=== PATIENT | male | born 1970 | race Caucasian/White ===

== ENCOUNTER 2017-11-15 08:53 | Emergency (ER) | payer BC ==
--- OUTSIDE RECORDS SUMMARY | 2017-11-15 08:55 | XMS REPORT | Clinical Summary ---
:1970 Author Organization [facility] Address [address] [place] [address] Care Team Providers Name Role Phone Tyrell Chacon MD Primary Care Provider Allergies No Known Allergies Current Medications Prescription Sig. Disp. Refills Start End Date Status Date fluticasone (FLONASE) 1 spray into 16 g 0 Active 50 mcg/actuation nasal each nostril 2 6 sprayIndications: Other (two) times a acute recurrent day for 10 sinusitis, Other days. allergic rhinitis fluticasone (FLONASE) 1 spray into 16 g 0 Active 50 mcg/actuation nasal each nostril 2 6 spray (two) times a day for 10 days. cyclobenzaprine Active (FLEXERIL) 5 mg tablet 7 methylPREDNISolone follow package 21 tablet 0 Active (MEDROL, RADHA,) 4 mg directions 7 tablet metoprolol succinate XL Take 1 tablet 90 tablet 3 Active (TOPROL-XL) 50 mg 24 hr (50 mg total) 7 tabletIndications: by mouth Essential hypertension daily. buPROPion SR Take 3 tablets 270 tablet 3 Active (WELLBUTRIN SR) 150 MG (450 mg total) 7 12 hr by mouth daily tabletIndications: for 90 days. Depression, unspecified depression type losartan-hydrochlorothi Take 1 tablet 90 tablet 3 Active azide (HYZAAR) 50-12.5 by mouth once 7 mg per daily. tabletIndications: Essential hypertension simvastatin (ZOCOR) 20 TAKE 1 TABLET 90 tablet 0 Active MG tabletIndications: BY MOUTH EVERY 8 Other hyperlipidemia DAY buPROPion SR Take 3 tablets 270 tablet 1 02/17/20 Discontinued (WELLBUTRIN SR) 150 MG (450 mg total) 7 17 12 hr by mouth daily tabletIndications: for 90 days. Depression, unspecified depression type losartan-hydrochlorothi Take 1 tablet 90 tablet 1 02/17/20 Discontinued azide (HYZAAR) 50-12.5 by mouth once 7 17 mg per daily. tabletIndications: Essential hypertension metoprolol succinate XL Take 1 tablet 90 tablet 1 02/17/20 Discontinued (TOPROL-XL) 50 mg 24 hr (50 mg total) 7 17 tabletIndications: by mouth once Essential hypertension daily. simvastatin (ZOCOR) 20 Take 1 tablet 90 tablet 1 05/18/19 Discontinued MG tabletIndications: (20 mg total) 7 18 Other hyperlipidemia by mouth once daily. meloxicam (MOBIC) 15 mg Take 1 tablet 30 tablet 2 08/01/19 tablet (15 mg total) 7 18 by mouth daily. cyclobenzaprine Take 1 tablet 30 tablet 1 08/03/19 (FLEXERIL) 10 mg tablet (10 mg total) 7 18 by mouth every 8 (eight) hours as needed for muscle spasms. Active Problems Problem Noted Date Erectile dysfunction 12/19/2015 Encounters Date Type Specialty Care Team Description 05/28/2017 Documentation Family Medicine Eileen Santana [facility] derick Valles MD utilization note 05/18/2017 Telephone Family Medicine Eileen Santana MD 05/18/2017 Refill Family Medicine Tyrell Chacon MD Other hyperlipidemia 02/16/2017 Refill Internal Medicine Lakshmi Dial, Essential hypertension; MA Depression, unspecified depression type after 11/14/2016 Social History Tobacco Use Types Packs/Day Years Used Date Former Smoker Tobacco Cessation: Counseling Given: No Alcohol Use Drinks/Week oz/Week Comments Yes 1 Shots of liquor 0.6 Sex Assigned at Date Recorded Not on file Last Filed Vital Signs Not on file Plan of Treatment Health Maintenance Due Date Last Done Comments INFLUENZA VACCINE 11/04/2017 Results Not on fileafter 11/14/2016 Insurance Payer Benefit Plan / Group Subscriber ID Type Phone Address BCBS BCBS CHOICE PPO/FEDERAL EMPL PPO xxxxxxxxxxxxxxx PPO Work: [address] [phone] [address] [place], [place] Home: [id number] [phone] [facility]
[2017-11-15] MEDS ORDERED: ONDANSETRON 4 MG/2 ML VIAL ONE (09:32)
[2017-11-15] MEDS ORDERED: MORPHINE 4 MG/ML SYR ONE (09:32)
[2017-11-15 09:33] LABS: Absolute Lymphocytes (CBC) 1.6 K/uL (0.7-4.9); Absolute Monocytes 0.7 K/uL (0.1-1.3); Absolute Neutrophil 4.6 K/uL (1.8-8.0); Basophils % 0.3 % (0-1.3); Eosinophils % 1.2 % (0-4.4); Hematocrit 46.7 % (39.6-49.0); Lymphocytes % 23.4 % (15.3-44.8); MCH 32.4 pg (27.0-35.0); MCV 93.6 fL (80-100); Monocytes % 9.3 % (3.3-12.3); RBC Red Blood Cell Count 4.99 M/uL (4.33-5.43)
[2017-11-15 09:49] LABS: Albumin 4.1 g/dL (3.4-5.0); Bilirubin Direct 0.2 mg/dL (0-0.2); Bilirubin Total 0.9 mg/dL (0.2-1.0); Potassium 4.2 mmol/L (3.5-5.1); Protein, Total 7.6 g/dL (6.4-8.2)
[2017-11-15 10:08] LABS: Urine Blood NEGATIVE (NEG); Urine Glucose NEGATIVE (NEG); Urine Protein NEGATIVE (NEG); Urine Specific Gravity 1.005 (1.005-1.030)
[2017-11-15 10:17] LABS: Urine Bacteria NONE SEEN /HPF (NONE SEEN); Urine Culture Reflex Order NOT NEEDED; Urine RBC <5 /HPF (NONE SEEN)
--- NOTE | 2017-11-15 10:27 | RAD REPORT ---
EXAM DESCRIPTION: CT - Abdomen Pelvis W Contrast - 11/15/2017 10:09 am CLINICAL HISTORY: Abdominal pain, left lower quadrant pain, cramping and diarrhea COMPARISON: None. TECHNIQUE: Biphasic, helical CT imaging of the abdomen and pelvis was performed following 100 ml non -ionic IV contrast. No oral contrast administered. Contrast opacification was not optimal due to inje ctor technical difficulties. Exam is diagnostic. All CT scans are performed using dose optimization technique as appropriate and may include automated exposure control or mA/KV adjustment according to patient size. FINDINGS: No suspicious findings in the lung bases. The liver, spleen, and pancreas show no suspicious findings. Gallbladder and biliary tree are also wi thout suspicious finding. Symmetric renal function is seen with no hydronephrosis or suspicious renal mass. No pyelonephritis o r acute renal parenchymal process. Prostate gland and seminal vesicles are normal. No bladder abnorma lity. No stomach or small bowel abnormality. The appendix is normal. Cecum through splenic flexure of the c olon unremarkable. Distal descending colon and proximal most sigmoid colon show 6-7 centimeter long s egment of mild wall thickening. There is stranding and congestion in the adjacent fat. The patient do es have a mild diverticulosis. Mild acute diverticulitis is favored over colitis. Mass is not suspect ed but is not entirely excluded. No abscess, free air or surgically emergent finding. No pneumatosis or free air. No other site of inflammatory stranding. No mass or bulky lymphadenopathy. Patient has a very small fat only umbilical hernia with small bilateral fat filled inguinal hernias. No adrenal a bnormality. No suspicious bony findings. IMPRESSION: Mild acute diverticulitis involving the distal descending colon and proximal most sigmoi d colon. No free air, abscess or other complicating factor.
--- NOTE | 2017-11-15 10:47 | EDPHYS ---
Physician Documentation [facility] Name: Juve Quach Age: 47 yrs Sex: Male : 1970 Arrival Date: 11/15/2017 Time: 08:59 Bed 5 Private MD: None, None ED Physician Tyler Gifford HPI: 11/15 09:07 This 47 yrs old Male presents to ER via Ambulatory with complaints of jmm Abdominal Cramping, Diarrhea. 09:07 The patient presents with abdominal pain in the left lower quadrant. Onset: The jmm symptoms/episode began/occurred gradually, 3 week(s) ago. The symptoms do not radiate. Associated signs and symptoms: Pertinent positives: diarrhea. This is a 47 year old male with a history of depression, HLP, HTN, Anxiety that presents to the ED with LLQ abdominal pain. Patient was diagnosed with diverticulitis in late October. The patient changed antibiotics a week later. Patient recently finished a course of cipro and flagyl with the pain returning along with diarrhea. . Historical: - Allergies: 09:14 No Known Allergies; sv - Home Meds: 09:14 bupropion HCl 150 mg Oral TbER 1 tab 2 times per day [Active]; metoprolol tartrate 50 sv mg Oral tab 1 tab once daily [Active]; simvastatin 20 mg Oral tab 1 tab once daily [Active]; - PMHx: 09:14 Depression; Hyperlipidemia; Hypertension; Anxiety; sv - PSHx: 09:14 left shoulder; left knee; sv - Immunization history:: Adult Immunizations up to date. - Ebola Screening: : No symptoms or risks identified at this time. - Social history:: Smoking status: Patient/guardian denies using tobacco. ROS: 09:07 Constitutional: Negative for fever, chills, and weight loss, Cardiovascular: Negative jmm for chest pain, palpitations, and edema, Respiratory: Negative for shortness of breath, cough, wheezing, and pleuritic chest pain. 09:07 Back: Negative for injury and pain, : Negative for injury, bleeding, discharge, and swelling, Neuro: Negative for headache, weakness, numbness, tingling, and seizure. 09:07 Abdomen/GI: Positive for abdominal pain, diarrhea. 09:07 All other systems are negative. Exam: 09:07 Constitutional: This is a well developed, well nourished patient who is awake, alert, jmm and in no acute distress. Head/Face: atraumatic. Chest/axilla: Normal chest wall appearance and motion. Cardiovascular: Regular rate and rhythm. No edema appreciated Respiratory: Normal respirations, no respiratory distress appreciated 09:07 Skin: General appearance color normal Neuro: Awake and alert, normal gait 09:07 Abdomen/GI: Inspection: abdomen appears normal, Bowel sounds: normal, Palpation: soft, moderate abdominal tenderness, in the left lower quadrant. 09:07 Back: ROM is normal. Vital Signs: 09:04 BP 146 / 90; Pulse 83; Resp 18; Temp 98.6(O); Pulse Ox 99% on R/A; Weight 101.15 kg; sv Height 5 ft. 11 in. (180.34 cm); Pain 4/10; 10:40 BP 130 / 79; Pulse 82; Resp 18; Pulse Ox 99% ; sv 09:04 Body Mass Index 31.10 (101.15 kg, 180.34 cm) sv MDM: 09:07 Patient medically screened. [facility] 10:46 Data reviewed: vital signs, nurses notes, lab test result(s), radiologic studies, CT [facility] scan. Counseling: I had a detailed discussion with the patient and/or guardian regarding: the historical points, exam findings, and any diagnostic results supporting the discharge/admit diagnosis, radiology results, the need for outpatient follow up, to return to the emergency department if symptoms worsen or persist or if there are any questions or concerns that arise at home. 10:46 ED course: Patient is alert and non toxic in appearance in the ED. Patient will be put [facility] on oral antibiotics and advised to closely follow up with GI for further evaluation. Patient given strict return precautions. Patient has no leukocytosis or findings consistent with perforation secondary to diverticulitis. . 11/15 09:07 Order name: Amylase, Serum; Complete Time: 10:00 [facility] 11/15 09:07 Order name: Basic Metabolic Panel; Complete Time: 10:00 [facility] 11/15 09:07 Order name: CBC with Diff; Complete Time: 10:00 [facility] 11/15 09:07 Order name: Creatinine for Radiology; Complete Time: 10:00 [facility] 11/15 09:07 Order name: Hepatic Function; Complete Time: 10:00 [facility] 11/15 09:07 Order name: Lipase; Complete Time: 10:00 [facility] 11/15 09:07 Order name: Urine Microscopic Only; Complete Time: 10:18 [facility] 11/15 09:07 Order name: IV Saline Lock; Complete Time: 09:22 [facility] 11/15 09:07 Order name: Labs collected and sent; Complete Time: 09:22 [facility] 11/15 09:07 Order name: Urine Dipstick-Ancillary (obtain specimen); Complete Time: :22 [facility] 11/15 09:13 Order name: CT Abd/Pelvis - W/Contrast; Complete Time: 10:32 [facility] 11/15 09:29 Order name: Urine Dipstick--Ancillary (enter results); Complete Time: 10:18 eb Administered Medications: 09:30 Drug: Zofran 4 mg Route: IVP; Site: right antecubital; sv 10:00 Follow up: Response: No adverse reaction sv 09:32 Drug: morphine 4 mg Route: IVP; Site: right antecubital; sv 10:00 Follow up: Response: No adverse reaction sv Disposition: 14:37 Co-signature as Attending Physician, Tyler Gifford MD. rn Disposition: 11/15/17 10:47 Discharged to Home. Impression: Diverticulitis of large intestine without perforation or abscess without bleeding. - Condition is Stable. - Discharge Instructions: High-Fiber Diet, Diverticulitis. - Prescriptions for Flagyl 500 mg Oral Tablet - take 1 tablet by ORAL route every 8 hours for 10 days; 30 tablet. Tylenol- Codeine #3 300-30 mg Oral Tablet - take 1 tablet by ORAL route every 6 hours As needed; 12 tablet. Bactrim DS 800- 160 mg Oral Tablet - take 1 tablet by ORAL route every 12 hours for 10 days; 20 tablet. - Work release form, Medication Reconciliation Form, Thank You Letter, Antibiotic Education, Prescription Opioid Use form. - Follow up: Cosmo Starks MD; When: 1 - 2 days; Reason: Recheck today's complaints, Continuance of care, Re-evaluation by your physician. Follow up: Coleman Saavedra MD; When: As needed; Reason: Recheck today's complaints, Continuance of care, Re-evaluation by your physician. Follow up: Harsha Cruz MD; When: 1 - 2 days; Reason: Recheck today's complaints, Continuance of care, Re-evaluation by your physician. Signatures: Dispatcher [employer] EDAdriane Galarza RN RN Syd Madrigal PA PA jmm Nieto, Roman, MD MD concrete journeyman: (The following items were deleted from the chart) 11:06 10:47 11/15/2017 10:47 Discharged to Home. Impression: Diverticulitis of large sv intestine without perforation or abscess without bleeding. Condition is Stable. Forms are Medication Reconciliation Form, Thank You Letter, Antibiotic Education, Prescription Opioid Use. Follow up: Cosmo Starks; When: 1 - 2 days; Reason: Recheck today's complaints, Continuance of care, Re-evaluation by your physician. Follow up: Coleman Saavedra; When: As needed; Reason: Recheck today's complaints, Continuance of care, Re-evaluation by your physician. Follow up: Harsha Cruz; When: 1 - 2 days; Reason: Recheck today's complaints, Continuance of care, Re-evaluation by your physician. willem 17:08 17:06 ED course: Patient is alert and non toxic in appearance in the ED. Patient will jmcharli be put on oral antibiotics and advised to closely follow up with GI for further evaluation. Patient given strict return precautions. Patient has no leukocytosis or findings consistent with perforation secondary to diverticulitis. . willem
--- NOTE | 2017-11-15 10:47 | ER ---
Nurse's Notes [facility] Name: Juve Quach Age: 47 yrs Sex: Male : 1970 Arrival Date: 11/15/2017 Time: 08:59 Bed 5 Private MD: None, None Diagnosis: Diverticulitis of large intestine without perforation or abscess without bleeding Presentation: 11/15 09:04 Presenting complaint: Patient states: LLQ cramping/diarrhea. Denies rectal bleeding or sv blood in stool. Pt was dx w/ diverticulitis on 10/24/17 at [facility], placed on levaquin and flagyl. Went back to [facility] on 11/04/17 after pain returned, placed on cipro and flagyl increased. Cramping has returned. Transition of care: patient was not received from another setting of care. Onset of symptoms was November 15, 2017. Risk Assessment: Do you want to hurt yourself or someone else? Patient reports no desire to harm self or others. Initial Sepsis Screen: Does the patient meet any 2 criteria? No. Patient's initial sepsis screen is negative. Does the patient have a suspected source of infection? No. Patient's initial sepsis screen is negative. Care prior to arrival: None. 09:04 Method Of Arrival: Ambulatory sv 09:04 Acuity: DEN 3 sv Triage Assessment: 09:04 General: Appears uncomfortable, well groomed, well developed, Behavior is calm, sv cooperative, appropriate for age. Pain: Complains of pain in left lower quadrant Pain currently is 4 out of 10 on a pain scale. Quality of pain is described as crampy, Is intermittent. EENT: No signs and/or symptoms were reported regarding the EENT system. Neuro: Level of Consciousness is awake, alert, obeys commands, Oriented to person, place, time, situation, Moves all extremities. Full function Gait is steady. Respiratory: Respiratory effort is even, unlabored, Respiratory pattern is regular, symmetrical. GI: Abdomen is flat, Reports cramping, diarrhea, Patient currently denies bloody stool, rectal bleeding. : No signs and/or symptoms were reported regarding the genitourinary system. Derm: Skin is pink, warm \T\ dry. Musculoskeletal: No signs and/or symptoms reported regarding the musculoskeletal system. Historical: - Allergies: :14 No Known Allergies; sv - Home Meds: 09:14 bupropion HCl 150 mg Oral TbER 1 tab 2 times per day [Active]; metoprolol tartrate 50 sv mg Oral tab 1 tab once daily [Active]; simvastatin 20 mg Oral tab 1 tab once daily [Active]; - PMHx: 09:14 Depression; Hyperlipidemia; Hypertension; Anxiety; sv - PSHx: 09:14 left shoulder; left knee; sv - Immunization history:: Adult Immunizations up to date. - Ebola Screening: : No symptoms or risks identified at this time. - Social history:: Smoking status: Patient/guardian denies using tobacco. Screenin:16 Abuse screen: Denies threats or abuse. Denies injuries from another. Nutritional sv screening: No deficits noted. Tuberculosis screening: No symptoms or risk factors identified. Fall Risk None identified. Assessment: 09:16 Reassessment: No changes from previously documented assessment. sv 11:05 Reassessment: Patient appears in no apparent distress at this time. Patient and/or sv family updated on plan of care and expected duration. Pain level reassessed. Patient is alert, oriented x 3, equal unlabored respirations, skin warm/dry/pink. Patient states symptoms have improved. Vital Signs: 09:04 BP 146 / 90; Pulse 83; Resp 18; Temp 98.6(O); Pulse Ox 99% on R/A; Weight 101.15 kg; sv Height 5 ft. 11 in. (180.34 cm); Pain 4/10; 10:40 BP 130 / 79; Pulse 82; Resp 18; Pulse Ox 99% ; sv 09:04 Body Mass Index 31.10 (101.15 kg, 180.34 cm) sv ED Course: 08:59 Patient arrived in ED. sb2 08:59 None, None is Private Physician. sb2 09:04 Adriane Griffiths, IVÁN is Primary Nurse. sv 09:04 Syd Bruner PA is PHCP. jmm 09:04 Tyler Gifford MD is Attending Physician. jmm 09:04 Arm band placed on right wrist. Patient placed in an exam room, on a stretcher. sv 09:13 Triage completed. sv 09:16 Patient has correct armband on for positive identification. Bed in low position. Pulse sv ox on. NIBP on. Door closed. Head of bed elevated. 09:17 Initial lab(s) drawn, by me, sent to lab. Inserted saline lock: 20 gauge in right 3 antecubital area, using aseptic technique. Blood collected. 09:22 Urine collected: clean catch specimen, clear. dh3 09:23 Radiology exam delayed due to lab results not completed at this time. (BUN/Creatinine). kw1 09:34 Awaiting lab results, Awaiting CT Scan. sv 10:09 CT Abd/Pelvis - W/Contrast In Process Unspecified. EDMS 10:40 Awaiting radiology results. sv 10:46 Cosmo Starks MD is Referral Physician. jmm 10:46 Coleman Saavedra MD is Referral Physician. jmm 10:46 Harsha Cruz MD is Referral Physician. jm 11:05 No provider procedures requiring assistance completed. IV discontinued, intact, sv bleeding controlled, No redness/swelling at site. Pressure dressing applied. Administered Medications: 09:30 Drug: Zofran 4 mg Route: IVP; Site: right antecubital; sv 10:00 Follow up: Response: No adverse reaction sv 09:32 Drug: morphine 4 mg Route: IVP; Site: right antecubital; sv 10:00 Follow up: Response: No adverse reaction sv Outcome: 10:47 Discharge ordered by MD. jmm 11:05 Discharged to home ambulatory. sv 11:05 Condition: stable 11:05 Discharge instructions given to patient, Instructed on discharge instructions, follow up and referral plans. no drinking with medication, no driving heavy equipment, medication usage, Demonstrated understanding of instructions, follow-up care, medications, Prescriptions given X 3. 11:06 Patient left the ED. sv Signatures: Dispatcher [employer] EDMS Adriane Griffiths, RN RN Syd Bruner PA PA jmm Herrera, Deanna 3 Nadya Zamarripa kw1 Daya Arroyo2
[2017-11-15 11:11] VITALS: TEMP 98.6; O2SAT 99
[2017-11-15 11:12] VITALS: BP 130/79
== END 2017-11-15 11:06 | disposition home or self-care (01) ==
LOC: ER 08:53
DX: K57.32 Diverticulitis of large intestine without perforation or abscess without bleeding (principal); I10 Essential (primary) hypertension; E78.5 Hyperlipidemia, unspecified; F32.9 Major depressive disorder, single episode, unspecified
CPT/HCPCS: 36415; 74177; 80048; 80076; 81003; 81015; 82150; 83690; 85025; 96374; 96375; 99284; J2405; Q9967

== ENCOUNTER 2017-12-14 22:52 | Inpatient (IN) | payer BC ==
--- OUTSIDE RECORDS SUMMARY | 2017-12-14 22:54 | XMS REPORT | Clinical Summary ---
:1970 Author Organization [facility] Address [address] [place] [address] Care Team Providers Name Role Phone Tyrell [...] (eight) hours as needed for muscle spasms. simvastatin (ZOCOR) 20 TAKE 1 TABLET 90 tablet 0 11/17/19 Discontinued MG tabletIndications: BY MOUTH EVERY 8 18 Other hyperlipidemia DAY Active Problems Problem Noted Date Erectile dysfunction 12/19/2015 Encounters Date Type Specialty Care Team Description 11/16/2017 Refill Family Medicine Eileen Santana MD 05/28/2017 Documentation Family Medicine Eileen Santana [facility] derick Valles MD utilization note 05/18/2017 Telephone Family Medicine Eileen Santana MD 05/18/2017 Refill Family Medicine Tyrell Chacon MD Other hyperlipidemia 02/16/2017 Refill Internal Medicine Lakshmi Dial, Essential hypertension; MA Depression, unspecified depression type after 12/13/2016 Social History Tobacco Use Types Packs/Day Years Used Date Former Smoker Tobacco Cessation: Counseling Given: No Alcohol Use Drinks/Week oz/Week Comments Yes 1 Shots of liquor 0.6 Sex Assigned at Date Recorded Not on file Last Filed Vital Signs Not on file Plan of Treatment Health Maintenance Due Date Last Done Comments INFLUENZA VACCINE 11/04/2017 Results Not on fileafter 12/13/2016 Insurance Payer Benefit Plan / Group Subscriber ID Type Phone Address BCBS BCBS CHOICE PPO/FEDERAL EMPL PPO xxxxxxxxxxxxxxx PPO Home: [id number] [phone] [facility]
[2017-12-14] MEDS ORDERED: MORPHINE 4 MG/ML SYR ONE (23:45)
[2017-12-14] MEDS ORDERED: ONDANSETRON 4 MG/2 ML VIAL ONE (23:45)
[2017-12-14] MEDS ORDERED: CEFTRIAXONE/SWI 1gm 1 GM/10 ML SYR ONE (23:45)
[2017-12-14] MEDS ORDERED: METRONIDAZOLE 500mg IVPB 500 MG/100 ML BAG IV ONE (23:46)
[2017-12-14] MEDS ORDERED: NA CHLORIDE 0.9% 1,000 ML ONE (23:46)
[2017-12-15 00:02] LABS: Absolute Lymphocytes (CBC) 2.9 K/uL (0.7-4.9); Absolute Monocytes 1.5 K/uL (0.1-1.3); Absolute Neutrophil 7.2 K/uL (1.8-8.0); Basophils % 0.3 % (0-1.3); Eosinophils % 1.2 % (0-4.4); Hematocrit 46.8 % (39.6-49.0); Lymphocytes % 24.9 % (15.3-44.8); MCH 32.7 pg (27.0-35.0); MCV 94.5 fL (80-100); MPV 9.2 fL (7.6-11.3); Monocytes % 12.8 % (3.3-12.3); RBC Red Blood Cell Count 4.96 M/uL (4.33-5.43)
--- NOTE | 2017-12-15 00:14 | EDPHYS ---
Physician Documentation [facility] Name: Juve Quach Age: 47 yrs Sex: Male : 1970 Arrival Date: 12/14/2017 Time: 22:54 Bed 23 Private MD: ED Physician Ankur Singh HPI: 12/15 00:08 This 47 yrs old Male presents to ER via Ambulatory with complaints of ABD raji PAIN/DIARRHEA. 00:08 The patient presents with abdominal pain in the lower abdomen, in the left lower raji quadrant. Onset: The symptoms/episode began/occurred 3 day(s) ago. The symptoms do not radiate. Associated signs and symptoms: Pertinent positives: diarrhea. The symptoms are described as crampy. Modifying factors: The symptoms are alleviated by nothing, the symptoms are aggravated by nothing. Severity of pain: At its worst the pain was moderate. The patient has not experienced similar symptoms in the past. Historical: - Allergies: 12/14 23:15 No Known Allergies; fc - Home Meds: 23:15 bupropion HCl 150 mg Oral TbER 1 tab 2 times per day [Active]; metoprolol tartrate 50 fc mg Oral tab 1 tab once daily [Active]; simvastatin 20 mg Oral tab 1 tab once daily [Active]; - PMHx: 23:15 Anxiety; Depression; Hyperlipidemia; Hypertension; Diverticulitis; fc - PSHx: 23:15 left shoulder surg; left knee surg; fc - Immunization history:: Last tetanus immunization: up to date. - Social history:: Smoking status: Patient/guardian denies using tobacco, Patient uses alcohol, occasionally. Patient/guardian denies using street drugs. - Ebola Screening: : Patient negative for fever greater than or equal to 101.5 degrees Fahrenheit, and additional compatible Ebola Virus Disease symptoms Patient denies exposure to infectious person Patient denies travel to an Ebola-affected area in the 21 days before illness onset. - Family history:: not pertinent. ROS: 12/15 00:08 Constitutional: Negative for fever, chills, and weight loss, Eyes: Negative for injury, raji pain, redness, and discharge, ENT: Negative for injury, pain, and discharge, Neck: Negative for injury, pain, and swelling, Cardiovascular: Negative for chest pain, palpitations, and edema, Respiratory: Negative for shortness of breath, cough, wheezing, and pleuritic chest pain, Back: Negative for injury and pain, : Negative for injury, bleeding, discharge, and swelling, MS/Extremity: Negative for injury and deformity, Skin: Negative for injury, rash, and discoloration, Neuro: Negative for headache, weakness, numbness, tingling, and seizure. Abdomen/GI: Positive for abdominal pain, of the left lower quadrant. Exam: 00:08 Constitutional: This is a well developed, well nourished patient who is awake, alert, raji and in no acute distress. Head/Face: Normocephalic, atraumatic. Eyes: Pupils equal round and reactive to light, extra-ocular motions intact. Lids and lashes normal. Conjunctiva and sclera are non-icteric and not injected. Cornea within normal limits. Periorbital areas with no swelling, redness, or edema. ENT: Nares patent. No nasal discharge, no septal abnormalities noted. Tympanic membranes are normal and external auditory canals are clear. Oropharynx with no redness, swelling, or masses, exudates, or evidence of obstruction, uvula midline. Mucous membranes moist. Neck: Trachea midline, no thyromegaly or masses palpated, and no cervical lymphadenopathy. Supple, full range of motion without nuchal rigidity, or vertebral point tenderness. No Meningismus. Chest/axilla: Normal chest wall appearance and motion. Nontender with no deformity. No lesions are appreciated. Cardiovascular: Regular rate and rhythm with a normal S1 and S2. No gallops, murmurs, or rubs. Normal PMI, no JVD. No pulse deficits. Respiratory: Lungs have equal breath sounds bilaterally, clear to auscultation and percussion. No rales, rhonchi or wheezes noted. No increased work of breathing, no retractions or nasal flaring. Back: No spinal tenderness. No costovertebral tenderness. Full range of motion. Male : Normal genitalia with no discharge or lesions. Skin: Warm, dry with normal turgor. Normal color with no rashes, no lesions, and no evidence of cellulitis. MS/ Extremity: Pulses equal, no cyanosis. Neurovascular intact. Full, normal range of motion. Neuro: Awake and alert, GCS 15, oriented to person, place, time, and situation. Cranial nerves II-XII grossly intact. Motor strength 5/5 in all extremities. Sensory grossly intact. Cerebellar exam normal. Normal gait. Psych: Awake, alert, with orientation to person, place and time. Behavior, mood, and affect are within normal limits. 00:08 Abdomen/GI: Inspection: abdomen appears normal, Bowel sounds: normal, Palpation: mild abdominal tenderness, moderate abdominal tenderness, in the left lower quadrant, Liver: no appreciated palpable abnormalities, Hernia: not appreciated. Vital Signs: 12/14 23:00 BP 153 / 97; Pulse 87; Resp 18; Pulse Ox 98% on R/A; Weight 99.34 kg (R); Height 5 ft. fc 11 in. (180.34 cm) (R); Pain 6/10; 23:13 Temp 99.4(O); mg2 12/15 00:12 Pulse 77; Resp 18; Pulse Ox 100% on R/A; mg2 12/14 23:00 Body Mass Index 30.54 (99.34 kg, 180.34 cm) fc MDM: 12/14 23:17 Patient medically screened. [facility] 12/15 00:12 Data reviewed: vital signs, nurses notes, lab test result(s), radiologic studies, CT [facility] scan. 12/14 23:24 Order name: Amylase, Serum [facility] 12/14 23:24 Order name: Basic Metabolic Panel [facility] 12/14 23:24 Order name: CBC with Diff; Complete Time: 01:08 [facility] 12/14 23:24 Order name: Creatinine for Radiology; Complete Time: 01:08 [facility] 12/14 23:24 Order name: Hepatic Function [facility] 12/14 23:24 Order name: Lipase; Complete Time: 01:08 [facility] 12/14 23:24 Order name: Urine Microscopic Only; Complete Time: 01:08 [facility] 12/14 23:24 Order name: Stool Culture [facility] 12/14 23:24 Order name: Fecal Leukocyte Stain [facility] 12/14 23:24 Order name: CDIFF [facility] 12/14 23:24 Order name: Urine Culture [facility] 12/14 23:25 Order name: Amylase Level; Complete Time: 01:08 [facility] 12/14 23:25 Order name: Basic Metabolic Panel; Complete Time: 01:08 [facility] 12/14 23:25 Order name: Liver (Hepatic) Function; Complete Time: 01:08 [facility] 12/14 23:24 Order name: IV Saline Lock; Complete Time: 23:34 [facility] 12/14 23:24 Order name: Labs collected and sent; Complete Time: 23:34 [facility] 12/14 23:24 Order name: Urine Dipstick-Ancillary (obtain specimen); Complete Time: 23:34 [facility] 12/14 23:34 Order name: Urine Dipstick--Ancillary (enter results); Complete Time: 01:08 [facility] 12/15 00:17 Order name: CONS Physician Consult EDNM 12/15 05:54 Order name: CBC with Automated Diff; Complete Time: :44 EDMS 12/15 06:12 Order name: Comprehensive Metabolic Panel; Complete Time: :44 EDMS Administered Medications: 12/14 23:51 Drug: morphine 4 mg Route: IVP; Site: left antecubital; mg2 12/15 00:21 Follow up: Response: No adverse reaction; Marked relief of symptoms [facility] 12/14 23:51 Drug: Zofran 4 mg Route: IVP; Site: left antecubital; mg2 12/15 00:20 Follow up: Response: No adverse reaction; Marked relief of symptoms [facility] 12/14 23:52 Drug: Flagyl 500 mg Volume: 100 ml; Route: IVPB; Rate: 200 ml/hr; Infused Over: 30 mg2 mins; Site: left antecubital; 23:52 Drug: Rocephin - (cefTRIAXone) 1 grams Route: IVPB; Infused Over: 30 mins; Site: left mg2 antecubital; 23:52 Drug: NS 0.9% 1000 ml Route: IV; Rate: 1 bolus; Site: left antecubital; mg2 Disposition: 12/15/17 00:13 Hospitalization ordered by Lily Morgan for Inpatient Admission. Preliminary diagnosis are Abdominal tenderness, Diverticulitis of small intestine without perforation or abscess without bleeding, Diarrhea, unspecified. - Bed requested for Telemetry/MedSurg (Inpatient). - Status is Inpatient Admission. iw - Condition is Fair. - Problem is new. - Symptoms have improved. UTI on Admission? No Signatures: Dispatcher [employer] EDNM Ruddy Fatima rust Ankur Singh MD MD cha Chretien, Felicia, RN RN fc Williams, Irene, RN RN Zuleika Marie RN RN df Gardose, Michele, RN RN mg2 Corrections: (The following items were deleted from the chart) 12/15 01:25 00:13 Hospitalization Ordered by Lily Morgan MD for Inpatient Admission. Preliminary rg2 diagnosis is Abdominal tenderness; Diverticulitis of small intestine without perforation or abscess without bleeding; Diarrhea, unspecified. Bed requested for Telemetry/MedSurg (Inpatient). Status is Inpatient Admission. Condition is Fair. Problem is new. Symptoms have improved. UTI on Admission? No. raji 01:25 01:25 12/15/2017 00:13 Hospitalization Ordered by Lily Morgan MD for Inpatient rg2 Admission. Preliminary diagnosis is Abdominal tenderness; Diverticulitis of small intestine without perforation or abscess without bleeding; Diarrhea, unspecified. Bed requested for [facility] ER HOLD. Status is Inpatient Admission. Condition is Fair. Problem is new. Symptoms have improved. UTI on Admission? No. rg2 07:32 01:25 12/15/2017 00:13 Hospitalization Ordered by Lily Morgan MD for Inpatient df Admission. Preliminary diagnosis is Abdominal tenderness; Diverticulitis of small intestine without perforation or abscess without bleeding; Diarrhea, unspecified. Bed requested for [facility] ER HOLD. Status is Inpatient Admission. Condition is Fair. Problem is new. Symptoms have improved. UTI on Admission? No. rg2 08:46 07:32 12/15/2017 00:13 Hospitalization Ordered by Lily Morgan MD for Inpatient iw Admission. Preliminary diagnosis is Abdominal tenderness; Diverticulitis of small intestine without perforation or abscess without bleeding; Diarrhea, unspecified. Bed requested for Telemetry/MedSurg (Inpatient). Status is Inpatient Admission. Condition is Fair. Problem is new. Symptoms have improved. UTI on Admission? No. df
--- NOTE | 2017-12-15 00:14 | ER ---
Nurse's Notes [facility] Name: Juve Quach Age: 47 yrs Sex: Male : 1970 Arrival Date: 12/14/2017 Time: 22:54 Bed 23 Private MD: Diagnosis: Abdominal tenderness;Diverticulitis of small intestine without perforation or abscess without bleeding;Diarrhea, unspecified Presentation: 12/14 23:00 Presenting complaint: Patient states: that she has been battling multiple episodes of fc diverticulitis since 10/24/17. Sent for outpt CT of abd today due to pain returning and still showed diverticulitis and was placed on Amoxicillin. Today had 8-9 episodes of watery stools and pain increased. Was told to come to ER. Pt is concerned that he may have C-Diff now. Transition of care: patient was not received from another setting of care. Onset of symptoms was December 12, 2017. Risk Assessment: Do you want to hurt yourself or someone else? Patient reports no desire to harm self or others. Initial Sepsis Screen: Does the patient meet any 2 criteria? No. Patient's initial sepsis screen is negative. Does the patient have a suspected source of infection? No. Patient's initial sepsis screen is negative. Care prior to arrival: None. 23:00 Method Of Arrival: Ambulatory fc 23:00 Acuity: DEN 3 fc Historical: - Allergies: 23:15 No Known Allergies; fc - Home Meds: 23:15 bupropion HCl 150 mg Oral TbER 1 tab 2 times per day [Active]; metoprolol tartrate 50 fc mg Oral tab 1 tab once daily [Active]; simvastatin 20 mg Oral tab 1 tab once daily [Active]; - PMHx: 23:15 Anxiety; Depression; Hyperlipidemia; Hypertension; Diverticulitis; fc - PSHx: 23:15 left shoulder surg; left knee surg; fc - Immunization history:: Last tetanus immunization: up to date. - Social history:: Smoking status: Patient/guardian denies using tobacco, Patient uses alcohol, occasionally. Patient/guardian denies using street drugs. - Ebola Screening: : Patient negative for fever greater than or equal to 101.5 degrees Fahrenheit, and additional compatible Ebola Virus Disease symptoms Patient denies exposure to infectious person Patient denies travel to an Ebola-affected area in the 21 days before illness onset. - Family history:: not pertinent. Screenin:00 Abuse screen: Denies threats or abuse. Nutritional screening: No deficits noted. Tuberculosis screening: No symptoms or risk factors identified. Fall Risk None identified. Assessment: 23:19 General: Appears comfortable, Behavior is calm, cooperative. Pain: Complains of pain in mg2 left lower quadrant Pain does not radiate. Pain currently is 8 out of 10 on a pain scale. Quality of pain is described as aching, Pain began gradually, Is intermittent. Neuro: Level of Consciousness is awake, alert, obeys commands, Oriented to person, place, time, situation. Cardiovascular: Capillary refill < 3 seconds Patient's skin is warm and dry. Respiratory: Airway is patent Respiratory effort is even, unlabored, Respiratory pattern is regular, symmetrical. EENT: No signs and/or symptoms were reported regarding the EENT system. Derm: Skin is intact, Skin is pink, warm \T\ dry. normal. Musculoskeletal: Circulation, motion, and sensation intact. Vital Signs: 23:00 BP 153 / 97; Pulse 87; Resp 18; Pulse Ox 98% on R/A; Weight 99.34 kg (R); Height 5 ft. fc 11 in. (180.34 cm) (R); Pain 6/10; 23:13 Temp 99.4(O); mg2 12/15 00:12 Pulse 77; Resp 18; Pulse Ox 100% on R/A; mg2 12/14 23:00 Body Mass Index 30.54 (99.34 kg, 180.34 cm) ED Course: 12/14 22:54 Patient arrived in ED. am2 23:00 Yeison Brizuela, RN is Primary Nurse. mg2 23:00 Arm band placed on Patient placed in an exam room, on a stretcher. fc 23:00 Patient has correct armband on for positive identification. Placed in gown. Bed in low fc position. Call light in reach. Pulse ox on. NIBP on. 23:00 No provider procedures requiring assistance completed. 23:12 Triage completed. fc 23:17 Ankur Singh MD is Attending Physician. raji 23:53 Inserted saline lock: 20 gauge in left antecubital area, using aseptic technique. Blood mg2 collected. 12/15 00:12 Lily Morgan MD is Hospitalizing Provider. raji 01:56 Notified ED physician of a critical lab result(s). HGB 3.9, HCT 11.1 Dr Francisco sheldon notified of results. 08:55 Patient admitted, IV remains in place. intact. hj Administered Medications: 12/14 23:51 Drug: morphine 4 mg Route: IVP; Site: left antecubital; mg2 12/15 00:21 Follow up: Response: No adverse reaction; Marked relief of symptoms mg2 12/14 23:51 Drug: Zofran 4 mg Route: IVP; Site: left antecubital; mg2 12/15 00:20 Follow up: Response: No adverse reaction; Marked relief of symptoms mg2 12/14 23:52 Drug: Flagyl 500 mg Volume: 100 ml; Route: IVPB; Rate: 200 ml/hr; Infused Over: 30 mg2 mins; Site: left antecubital; 23:52 Drug: Rocephin - (cefTRIAXone) 1 grams Route: IVPB; Infused Over: 30 mins; Site: left mg2 antecubital; 23:52 Drug: NS 0.9% 1000 ml Route: IV; Rate: 1 bolus; Site: left antecubital; mg2 Outcome: 12/15 00:13 Decision to Hospitalize by Provider. raji 08:46 Patient left the ED. iw 08:54 Admitted to Med/surg accompanied by tech, via stretcher, room 230, with chart, Report hj called to IVÁN Canela 08:54 Condition: stable 08:54 Instructed on the need for admit, Demonstrated understanding of instructions. Signatures: Ankur Singh MD MD cha Chretien, Felicia, RN RN Rekha Olvera RN RN bb Williams, Irene, RN RN Cal Linton RN RN Cora Kay Michele, RN RN mg2 Corrections: (The following items were deleted from the chart) 12/14 23:15 23:00 Presenting complaint: Patient states: that she has been battling multiple fc episodes of diverticulitis since 10/24/17. Sent for outpt CT of abd today due to pain returning and still showed diverticulitis and was placed on Amoxicillin. Today had 8-9 episodes of watery stools and pain increased. Was told to come to ER. fc
[2017-12-15 00:30] LABS: Urine Bacteria <20 /HPF (NONE SEEN); Urine Culture Reflex Order NOT NEEDED; Urine RBC <5 /HPF (NONE SEEN)
[2017-12-15 00:31] LABS: Urine Blood NEGATIVE (NEG); Urine Glucose NEGATIVE (NEG); Urine Protein NEGATIVE (NEG); Urine pH 6.5 (5.0-7.0)
[2017-12-15 00:35] LABS: Albumin 3.8 g/dL (3.4-5.0); Bilirubin Direct 0.2 mg/dL (0-0.2); Bilirubin Total 0.7 mg/dL (0.2-1.0)
[2017-12-15] MEDS ORDERED: ONDANSETRON 4 MG/2 ML VIAL IV PRN (00:36)
[2017-12-15] MEDS ORDERED: ACETAMINOPHEN 500 MG TAB PO PRN (00:36)
[2017-12-15] MEDS: Levofloxacin500mg IV 500 MG/100 ML BAG IV SCH (01:00)
[2017-12-15] MEDS: NA CHLORIDE 0.9% 1,000 ML IV SCH ×3 (01:00→21:28)
[2017-12-15] MEDS ORDERED: Levofloxacin500mg IV 500 MG/100 ML BAG IV ONE (02:23)
[2017-12-15] MEDS ORDERED: MORPHINE 4 MG/ML SYR ONE ×2 (02:23→07:38)
[2017-12-15] MEDS ORDERED: NA CHLORIDE 0.9% 1,000 ML ONE (02:24)
[2017-12-15] MEDS: MORPHINE 4 MG/ML SYR IV PRN ×4 (02:28→18:13)
[2017-12-15 05:39] VITALS: BMI 30.5
[2017-12-15 05:46] LABS: Absolute Lymphocytes (CBC) 2.4 K/uL (0.7-4.9); Absolute Monocytes 1.5 K/uL (0.1-1.3); Absolute Neutrophil 6.7 K/uL (1.8-8.0); Basophils % 0.2 % (0-1.3); Eosinophils % 1.1 % (0-4.4); Hematocrit 42.7 % (39.6-49.0); Lymphocytes % 22.8 % (15.3-44.8); MCH 33.1 pg (27.0-35.0); MCV 94.3 fL (80-100); MPV 9.2 fL (7.6-11.3); Monocytes % 13.8 % (3.3-12.3); RBC Red Blood Cell Count 4.53 M/uL (4.33-5.43)
[2017-12-15] MEDS: METRONIDAZOLE 500mg IVPB 500 MG/100 ML BAG IV SCH ×3 (06:00→18:13)
[2017-12-15 06:09] LABS: Albumin 3.5 g/dL (3.4-5.0); Potassium 4.2 mmol/L (3.5-5.1); Protein, Total 7.1 g/dL (6.4-8.2)
--- NOTE | 2017-12-15 06:16 | P.HP ---
Certification for Inpatient Patient admitted to: Inpatient With expected LOS: >2 Midnights Patient will require the following post-hospital care: None Practitioner: I am a practitioner with admitting privileges, knowledge of patient current condition, hospital course, and medical plan of care. Services: Services provided to patient in accordance with Admission requirements found in Title 42 Section 412.3 of the Code of Federal Regulations Patient History Date of Service: 12/15/17 Reason for admission: Abdominal pain/persistent diverticulitis History of Present Illness: Patient is a 47-year-old gentleman who came to the hospital with abdominal discomfort. Pain was mainly in the left lower quadrant. This is been going on since October. Patient has been treated with for diverticulitis. He had similar issues about 10 years ago and at that time he was given antibiotics to alleviate his abdominal discomfort. He was felt to have diverticulitis. He did have a colonoscopy which he stated came back completely normal. He was not told if he had any other abnormalities. Patient's workup from earlier today which was done by his psychiatric mental health nurse once again revealed in acute diverticulitis episode. Patient will need to be admitted to the hospital and may be beneficial for him to do a CT to further assist or evaluate patient's clinical picture. Allergies No Known Allergies Allergy (Unverified 01/18/17 08:26) Home Medications: Bupropion HCl [Wellbutrin Sr] 150 mg PO BID 12/15/17 Metoprolol Succinate [Toprol Xl] 50 mg PO DAILY 12/15/17 Simvastatin 10 mg PO BEDTIME 12/15/17 - Past Medical/Surgical History Has patient received pneumonia vaccine in the past: No Diabetic: No -: Diverticulitis -: Hypertension -: Dyslipidemia -: Colonoscopy - Family History Father Family History: Reviewed- Non-Contributory - Social History Smoking Status: Never smoker Alcohol use: Yes CD- Drugs: No Caffeine use: Yes Place of Residence: Home Review of Systems 10-point ROS is otherwise unremarkable Physical Examination - Vital Signs Blood Pressure: 128/85 Pulse: 70 Respirations: 16 Pulse Ox (%): 98 - Physical Exam General: Alert, In no apparent distress, Oriented x3 HEENT: Atraumatic, PERRLA, Mucous membr. moist/pink, EOMI, Sclerae nonicteric Neck: Supple, 2+ carotid pulse no bruit, No LAD, Without JVD or thyroid abnormality Respiratory: Clear to auscultation bilaterally, Normal air movement Cardiovascular: Regular rate/rhythm, Normal S1 S2, No murmurs Capillary refill: <2 Seconds Gastrointestinal: Normal bowel sounds, Hypoactive, Soft and benign, Non- distended, No tenderness Musculoskeletal: No clubbing, No swelling, No tenderness Integumentary: No rashes Neurological: Normal gait, Normal speech, Normal strength at 5/5 x4 extr, Normal tone, Sensation intact, Cranial nerves 3-12 intact, Normal affect Lymphatics: No axilla or inguinal lymphadenopathy - Studies Laboratory Data (last 24 hrs) 12/14/17 23:30: Creatinine 1.20 12/14/17 23:30: WBC 11.8 H, Hgb 16.2, Hct 46.8, Plt Count 213 12/14/17 23:30: Sodium 138, Potassium 4.0, BUN 11, Creatinine 1.20, Glucose 99, Total Bilirubin 0.7, AST 38 H, ALT 73, Alkaline Phosphatase 84, Amylase 45, Lipase 170 Assessment & Plan - Plan Assessment: 1. Abdominal pain 2. Diverticulitis 3. Leukocytosis 4. History of hypertension 5. History of dyslipidemia Plan: 1. Continue with IV hydration 2. Continue with IV antibiotics 3. Continue with pain control 4. NPO; advanced diet as tolerated 5. GI consultation; outpatient colonoscopy in 6-12 weeks 6. Serial H&H, and we will monitor CBC, BMP, LFTs and lipase along with electrolytes. 7. Strict blood pressure control and monitor labs to evaluate CBC and cholesterol as an outpatient 8. GI and DVT prophylaxis - Advance Directives Does patient have a Living Will: No Does patient have a Durable POA for Healthcare: No - Code Status/Comfort Care Code Status Assessed: Yes Code Status: Full Code Critical Care: No Time Spent Managing PTS Care (In Minutes): 50
[2017-12-15] MEDS ORDERED: METRONIDAZOLE 500mg IVPB 500 MG/100 ML BAG IV ONE (06:18)
[2017-12-15] MEDS ORDERED: ONDANSETRON 4 MG/2 ML VIAL ONE (07:39)
[2017-12-15] MEDS ORDERED: HOME MED 1 EA UNK (Simvastatin [Simvastatin] 10 MG) PO SCH (21:00)
[2017-12-15] MEDS: ATORVASTATIN 10 MG TAB PO SCH (21:29)
[2017-12-15] MEDS: BUPROPRION HCL S.R. 150MG TAB PO SCH (21:29)
[2017-12-15] MEDS: METOPROLOL XL 50 MG TAB PO SCH (22:33)
[2017-12-16] MEDS: METRONIDAZOLE 500mg IVPB 500 MG/100 ML BAG IV SCH ×5 (00:21→23:53)
[2017-12-16] MEDS: Levofloxacin500mg IV 500 MG/100 ML BAG IV SCH (00:22)
[2017-12-16 05:20] LABS: Absolute Lymphocytes (CBC) 2.7 K/uL (0.7-4.9); Absolute Neutrophil 4.4 K/uL (1.8-8.0); Basophils % 0.4 % (0-1.3); Eosinophils % 3.7 % (0-4.4); Hematocrit 45.4 % (39.6-49.0); Lymphocytes % 31.8 % (15.3-44.8); MCH 32.6 pg (27.0-35.0); MCV 96.6 fL (80-100); MPV 8.8 fL (7.6-11.3)
[2017-12-16 05:39] LABS: Albumin 3.4 g/dL (3.4-5.0); Bilirubin Total 1.1 mg/dL (0.2-1.0); Potassium 4.2 mmol/L (3.5-5.1); Protein, Total 7.2 g/dL (6.4-8.2)
[2017-12-16] MEDS: NA CHLORIDE 0.9% 1,000 ML IV SCH ×2 (05:49→17:19)
[2017-12-16] MEDS ORDERED: METOPROLOL XL 50 MG TAB PO SCH ×2 (09:00→21:00)
[2017-12-16] MEDS: BUPROPRION HCL S.R. 150MG TAB PO SCH ×2 (09:38→21:20)
[2017-12-16] MEDS: MORPHINE 4 MG/ML SYR IV PRN ×2 (09:38→17:26)
--- NOTE | 2017-12-16 12:53 | CON ---
Date of Consultation: 12/15/2017 History Of Present Illness: This is the case of a 47-year-old patient with history of diverticulitis . He has been seen by Dr. Saavedra. They come in this morning, explained to me that this patient has be en on and off with diverticulitis, unable to resolve completely, so they are not feeling comfortable doing a colonoscopy at this time on him. There is suspected to be diverticulitis. Surgical consult was obtained to explain to the patient surgical intervention options at this moment. He says he has been dealing with that for several years already with several diverticulitis episodes. Allergies: NONE. Medications: Metoprolol. Past Medical History: History of diverticulitis, hypertension. Colonoscopy not done yet at this [facility] [place] [facility]. Review of Systems: Constitutional: He denies any fever, any chills. Respiratory: Denies any shortness of breath. Gastrointestinal: Denies any vomiting, any melena, any hematochezia. The patient has occasional di sea. Physical Examination: General: The patient is awake and alert. HEENT: Pupils are equal and reactive, anicteric. Neck: Supple. Chest: Clear. Heart: S1, S2. Abdomen: Soft and depressible. Left lower quadrant mild tenderness. No rebound. Rectal: Deferred. Extremity: Good capillary refill. Laboratory Data: Blood work shows WBC count of 11.8, hemoglobin of 16.2, potassium 4.0, amylase 45. UA, nitrite negative. CT scan of the abdomen and pelvis interpreted by Dr. Sexton, acute diverticulit is in the left lower quadrant involving the descending colon, proximal sigmoid colon. No abscess see n. Assessment: This is a 47-year-old patient with recurrent diverticulitis. I explained to him the opt ion of laparotomy, possible bowel resection, possible option with benefits, alternatives, and risks i ncluding, but not limited to infection, bleeding, damage to adjacent structures, anesthesia complicat ion, anastomosis leak, abscess, [place], or even . He also understands this may not relieve any symp toms, he might need more than one surgical intervention. He wants some more time. He understands ri ght now this swelling and tenderness have limitations on the surgery itself, and he may end up with a colostomy, and he wants to give himself another chance. He admitted that he has not been the best c ompliant patient with his diverticulitis. He feels better today. He does not want to go for surgica l intervention. I explained to him limitations he has given to the GI doctor that if he is not compl iant diverticulitis may not resolve and he may end up with perforation and need an emergent surgery. He wants to try conservative treatment once again, he is going to check his diary. If he improves a nd pain goes away and diverticulitis improves, then he is going to continue on antibiotics by mouth f or at least 1 more week at home and then after that, he is going to come to my office and discuss chantell ctive bowel resection, and that will be if clinically he improves like he is improving in the last fe w hours. CHELY Voice ID: [id number] Report ID: [id number]
--- NOTE | 2017-12-16 13:42 | P.PN ---
Subjective Date of Service: 12/16/17 Chief Complaint: Abdominal pain/persistent diverticulitis Patient seen and examined at bedside with RN. Chart reviewed. Case discussed with general surgery at this time. Patient has been on clear liquid diet tolerating well. No abdominal pain or diarrhea noted Review of Systems 10-point ROS is otherwise unremarkable Physical Examination - Vital Signs Temperature: 97.4 F Blood Pressure: 135/91 Pulse: 67 Respirations: 18 Pulse Ox (%): 99 - Physical Exam General: Alert, In no apparent distress HEENT: Atraumatic, PERRLA, EOMI Neck: Supple, JVD not distended Respiratory: Clear to auscultation bilaterally, Normal air movement Cardiovascular: Regular rate/rhythm, Normal S1 S2 Gastrointestinal: Normal bowel sounds, No tenderness Musculoskeletal: No tenderness Integumentary: No rashes Neurological: Normal speech, Normal tone, Normal affect Lymphatics: No axilla or inguinal lymphadenopathy - Studies Microbiology Data (last 24 hrs): 12/14/17 23:35 Clean Catch Urine [place] Count - Final 12/14/17 23:35 Clean Catch Urine - Final 12/14/17 23:25 Stool Clostridium difficile Toxin Assay - Final 12/14/17 23:25 Stool Fecal Leukocyte Stain - Final Medications List Reviewed: Yes Assessment And Plan - Current Problems (Diagnosis) (1) Abdominal pain Onset Date: 12/16/17 Current Visit: No Status: Acute Plan: Generalized abdominal pain most likely secondary to diverticulitis. -improved this morning. -patient advanced to a clear liquid diet. Qualifiers: Abdominal location: generalized Qualified Code(s): R10.84 - Generalized abdominal pain (2) Diverticulitis Onset Date: 12/16/17 Current Visit: No Status: Acute Plan: Diverticulitis on abdominal CT. The patient has been having this chronically. -GI consulted. Appreciated recommendations at this time as well. -general surgery consulted. Appreciated recommendations at this time -patient currently on a clear liquid diet. Anticipate discharge in 24-48 hr. -Will need to have colorectal surgeon follow up in about 2-3 weeks post discharge. - Plan Awaiting clinical improvement at this time. Will advance to GI soft. Patient will be discharged in 24-48 hr if able to tolerate oral intake Discharge Plan: Home Plan to discharge in: 24 Hours - Code Status/Comfort Care Code Status Assessed: Yes Critical Care: No
[2017-12-16] MEDS: ATORVASTATIN 10 MG TAB PO SCH (21:21)
[2017-12-16] MEDS: METOPROLOL XL 50 MG TAB PO SCH (21:21)
[2017-12-17] MEDS: Levofloxacin500mg IV 500 MG/100 ML BAG IV SCH (00:07)
[2017-12-17] MEDS: NA CHLORIDE 0.9% 1,000 ML IV SCH ×2 (00:09→12:02)
[2017-12-17 01:23] VITALS: O2SAT 98
[2017-12-17] MEDS: METRONIDAZOLE 500mg IVPB 500 MG/100 ML BAG IV SCH ×2 (05:03→12:01)
[2017-12-17] MEDS: BUPROPRION HCL S.R. 150MG TAB PO SCH (09:28)
[2017-12-17 14:11] VITALS: BP 134/86; TEMP 97.7
--- NOTE | 2017-12-17 14:59 | P.SSS ---
Patient History Date of Service: 12/17/17 Reason for admission: Abdominal pain/persistent diverticulitis History of Present Illness: Patient is a 47-year-old gentleman who came to the hospital with abdominal discomfort. Pain was mainly in the left lower quadrant. This is been going on since October. Patient has been treated with for diverticulitis. He had similar issues about 10 years ago and at that time he was given antibiotics to alleviate his abdominal discomfort. He was felt to have diverticulitis. He did have a colonoscopy which he stated came back completely normal. He was not told if he had any other abnormalities. Patient's workup from earlier today which was done by his migration agent once again revealed in acute diverticulitis episode. Patient will need to be admitted to the hospital and may be beneficial for him to do a CT to further assist or evaluate patient's clinical picture. Allergies No Known Allergies Allergy (Unverified 01/18/17 08:26) Home Medications: Bupropion HCl [Wellbutrin Sr] 150 mg PO BID 12/15/17 Metoprolol Succinate [Toprol Xl*] 50 mg PO DAILY 12/15/17 Simvastatin 10 mg PO BEDTIME 12/15/17 Ciprofloxacin HCl [Cipro 500 MG Tablet] 500 mg PO DAILY #14 tab 12/17/17 metroNIDAZOLE [Flagyl] 500 mg PO Q8H #42 tablet 12/17/17 - Past Medical/Surgical History Has patient received pneumonia vaccine in the past: No Diabetic: No -: Diverticulitis -: Hypertension -: Dyslipidemia -: Colonoscopy - Social History Smoking Status: Never smoker Alcohol use: Yes CD- Drugs: No Caffeine use: Yes Place of Residence: Home Review of Systems 10-point ROS is otherwise unremarkable Physical Examination - Vital Signs Temperature: 97.7 F Blood Pressure: 134/86 Pulse: 68 Respirations: 18 Pulse Ox (%): 99 - Physical Exam General: Alert, In no apparent distress HEENT: Atraumatic, PERRLA, Mucous membr. moist/pink, EOMI, Sclerae nonicteric Neck: Supple, 2+ carotid pulse no bruit, No LAD, Without JVD or thyroid abnormality Respiratory: Clear to auscultation bilaterally, Normal air movement Cardiovascular: Regular rate/rhythm, Normal S1 S2 Gastrointestinal: Normal bowel sounds, No tenderness Musculoskeletal: No tenderness Integumentary: No rashes Neurological: Normal gait, Normal speech, Normal strength at 5/5 x4 extr, Normal tone, Normal affect Lymphatics: No axilla or inguinal lymphadenopathy - Studies Microbiology Data (last 24 hrs): 12/14/17 23:25 Stool Culture & Sensitivity - Final - Diagnosis (Problem(s)) (1) Abdominal pain Onset Date: 12/16/17 Current Visit: No Status: Resolved Plan: Generalized abdominal pain most likely secondary to diverticulitis. -improved this morning. Qualifiers: Abdominal location: generalized Qualified Code(s): R10.84 - Generalized abdominal pain (2) Diverticulitis Onset Date: 12/16/17 Current Visit: No Status: Acute Treatment Summary: Overall during the hospital stay patient remained stable The patient was initially admitted to the hospital for abdominal pain was sent over by his GI doctor for chronic diverticulitis for evaluation by surgery. Surgery was consulted here in the hospital who evaluated the patient and offered a laparoscopic removal of the affected colon with colostomy bag. Patient however stated that he would like to do diet and exercise at this time and see if his chronic diverticulitis is able to be resolved through diet and exercise without getting surgery. Patient then was advanced to a clear liquid diet which she tolerated well. Patient was also started on IV antibiotics at that time and was switched over to p.o. antibiotics. Surgery then recommended the patient can be followed up outpatient and will discuss further care with him outpatient and will have a referral to colorectal surgeon once his acute phase of diverticulitis has resolved. Patient demonstrated understanding and once his symptoms had resolved was discharged back to the house under stable condition. Patient was given a prescription for Cipro and Flagyl to be taken for total of 14 days. - Disposition Disposition: ROUTINE DISCHARGE Condition: GOOD Patient Discharge Instructions: Please f.u with Dr Yo stanley at 10:15AM. New medication. Ciprofloxacin 500mg daily for 14 days. Flagyl 500mg q8h for 14 days Diet: [place] Activity: Ad bernabe
== END 2017-12-17 14:53 | disposition home or self-care (01) | DRG 392 ==
LOC: ER 22:52 → ERHOLD 12-15 00:19 → 2ND 12-15 08:28
PROVIDERS: ADMIT Hospitalist; ATTEND Hospitalist
DX: K57.92 Diverticulitis of intestine, part unspecified, without perforation or abscess without bleeding (principal); I10 Essential (primary) hypertension; E78.5 Hyperlipidemia, unspecified
CPT/HCPCS: 36415; 74177; 80048; 80053; 80076; 81003; 81015; 82150; 82565; 83690; 84520; 85025; 87045; 87046; 87086; 87088; 87493; 89055; 96374; 96375; 99285; J0696; J2405; J7030; Q9967